=== PATIENT | male | born 1990 | race Caucasian/White ===

== ENCOUNTER 2018-04-02 03:26 | Emergency (ER) | payer MEDICAID, OTHER ==
[2018-04-02 03:38] VITALS: BP 122/76
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
== END 2018-04-02 04:00 ==
DX: S00.531A Contusion of lip, initial encounter (principal); F17.200 Nicotine dependence, unspecified, uncomplicated; V49.09XA Driver injured in collision with other motor vehicles in nontraffic accident, initial encounter; Y92.9 Unspecified place or not applicable; Y99.9 Unspecified external cause status; Y93.9 Activity, unspecified